=== PATIENT | male | born 1985 | race Hispanic/Latino ===

== ENCOUNTER 2018-02-25 11:25 | Emergency (ER) | payer BC ==
[2018-02-25] MEDS ORDERED: KETOROLAC TROMETHAMINE 30MG/ML ONE (11:54)
[2018-02-25] MEDS ORDERED: SODIUM CHLORIDE 0.9% 1000ML 1,000 ML IV ONE (11:54)
[2018-02-25 11:55] LABS: BASOPHILS % (AUTO) 0.6 % (0.0-5.0); EOSINOPHILS % (AUTO) 3.8 % (0.0-8.0); HEMATOCRIT 47.7 % (42-54); LYMPHOCYTES % (AUTO) 22.2 % (21.0-51.0); MEAN CORPUSCULAR HEMOGLOBIN 30.8 pg (27.0-33.0); MEAN CORPUSCULAR HGB CONC 33.9 g/dL (32.0-36.0); MEAN CORPUSCULAR VOLUME 91.1 fL (79-99); MONOCYTES % (AUTO) 5.6 % (3.0-13.0); NEUTROPHILS % (AUTO) 67.8 % (40.0-77.0); PLATELET COUNT (AUTO) 376 K/uL (130-400); RED BLOOD CELL COUNT(AUTO) 5.24 MIL/uL (4.50-6.20); RED CELL DISTRIBUTION WIDTH 13.4 % (11.0-15.5); WHITE BLOOD COUNT (AUTO) 8.3 K/uL (4.8-10.8)
[2018-02-25 12:12] LABS: CREATININE 1.1 mg/dL (0.5-1.5); POTASSIUM 4.1 mmol/L (3.5-5.1)
[2018-02-25 13:57] LABS: APPEARANCE,URINE Clear (CLEAR); BILIRUBIN,URINE Negative (NEGATIVE); COLOR,URINE Yellow (YELLOW); GLUCOSE, URINE (UA) Negative (NEGATIVE); KETONES,URINE Negative (NEGATIVE); LEUKOCYTE ESTERASE ,URINE Negative (NEGATIVE); NITRATE,URINE Negative (NEGATIVE); OCCULT BLOOD,URINE Negative (NEGATIVE); PH,URINE 7.5 (5.0-8.0); PROTEIN,URINE Negative (NEGATIVE)
== END 2018-02-25 14:26 | disposition home or self-care (01) ==
LOC: EDH 11:25
DX: R10.9 Unspecified abdominal pain (principal); R11.2 Nausea with vomiting, unspecified; Z87.442 Personal history of urinary calculi
CPT/HCPCS: 36415; 74176; 80048; 81003; 85025; 96361; 96374; 99285; J1885; J7030

== ENCOUNTER 2021-07-28 07:30 | Day surgery (SDC) | payer BC ==
[2021-07-25 12:00] VITALS: BP_SYST 166; BP_SYST 176; BP_DIAS 96; BP_DIAS 98
[~2021-07-28] VITALS: Ht 172.7 cm; Wt 106.8 kg
[2021-07-28] VITALS (12 sets, daily range): BP systolic 109–139; BP diastolic 65–94
[~2021-07-28 07:30] MED LIST: CEFAZOLIN SODIUM 1 GM VIAL IVP SCH
[2021-07-28] MEDS ORDERED: LACTATED RINGERS 1000ML 1,000 ML IV ONE (08:08)
[2021-07-28] MEDS ORDERED: LIDOCAINE HCL 1% 20 ML VIAL ONE (10:52)
[2021-07-28] MEDS ORDERED: BUPIVACAINE/PF 0.5% 30ML VIAL ONE (10:52)
[2021-07-28] MEDS ORDERED: PROPOFOL 10 MG/ML 20ML VIAL IV ONE ×3 (10:54→11:31)
[2021-07-28] MEDS ORDERED: MIDAZOLAM HCL 1 MG/ML 2ML VIAL ONE (10:54)
== END 2021-07-28 13:15 | disposition home or self-care (01) ==
LOC: DAH 07:30
PROVIDERS: ATTEND Urology
DX: Z30.2 Encounter for sterilization (principal); Z20.822 Contact with and (suspected) exposure to COVID-19; E66.9 Obesity, unspecified; G47.30 Sleep apnea, unspecified; Z98.890 Other specified postprocedural states; Z79.899 Other long term (current) drug therapy
CPT/HCPCS: 55250; 87635; A4215; A4221; A4222; A4223; A4663; A6260; C9803; J0690; J2250; J2704 ×3; J3490; J7120